=== PATIENT | female | born 1990 | race Caucasian/White ===

== ENCOUNTER → 2019-12-25 | Outpatient (CLI) | payer OTHER ==
[~2019-12-25] MED LIST: CIPR500 PO; HYDACE5 PO; IBUP600 PO; IBUP800 PO; Keflex500 MG PO; ONDA4 PO; OXYACE5T PO; PHENA200 PO; SULTRIDS PO; Ultram50 MG PO
== END | disposition home or self-care (01) ==
LOC: LAB SHORT 12:05 → LAB EV 12:05
DX: J03.90 Acute tonsillitis, unspecified (principal)
CPT/HCPCS: 87081; 87147

== ENCOUNTER 2020-08-06 11:54 | Inpatient (IN) | payer OTHER ==
[~2020-08-06] VITALS: Ht 172.7 cm; Wt 128.0 kg
[2020-08-06 13:00] LABS: BASOPHILS ABSOLUTE AUTO 0.03 K/mm3 (0.00-0.23); BASOPHILS PERCENT AUTO 0 % (0-2); EOSINOPHILS ABSOLUTE AUTO 0.17 K/mm3 (0.00-0.68); EOSINOPHILS PERCENT AUTO 2 % (0-6); Hematocrit 35.5 % (33.0-51.0); Hemoglobin 11.4 g/dL (11.5-16.0); IMMATURE GRAN ABSOLUTE AUTO 0.08 K/mm3 (0.00-0.10); IMMATURE GRAN PERCENT AUTO 1 % (0-1); LYMPHOCYTES ABSOLUTE AUTO 1.56 K/mm3 (0.84-5.20); LYMPHOCYTES PERCENT AUTO 17 % (21-46); MONOCYTES ABSOLUTE AUTO 0.34 K/mm3 (0.16-1.47); MONOCYTES PERCENT AUTO 4 % (4-13); Mean Corpuscular HGB 27.7 pg (26.0-34.0); Mean Corpuscular HGB Conc 32.1 g/dL (31.5-36.5); Mean Corpuscular Volume 86 fL (80-100); NEUTROPHILS ABSOLUTE AUTO 6.78 K/mm3 (1.96-9.15); NEUTROPHILS PERCENT AUTO 76 % (41-73); Platelet Count 318 K/mm3 (150-400); RDW Coefficient Variation 12.7 % (11.7-14.2); RDW Standard Deviation 40.2 fL (35.1-46.3); Red Blood Cell Count 4.11 M/mm3 (3.80-5.20); White Blood Cell Count 8.96 K/mm3 (4.00-11.30)
[2020-08-06] MEDS ORDERED: PRENATAL TABLE1 EAC2 PO (17:36)
--- NOTE | 2020-08-08 12:26 | NUR ---
dr gloria here to evlauate pt
[2020-08-08 14:41] LABS: PCO2 Cord - Arterial 55.3 mmHg (40-50); pH Cord - Arterial 7.23 (7.28-7.35)
[2020-08-08 14:43] LABS: PCO2 Cord - Venous 46.4 mmHg (40-50); pH Umbilical Cord - Venous 7.28 (7.26-7.35)
[2020-08-08 14:44] LABS: PO2 Cord - Arterial < 13 mmHg (16-20)
--- NOTE | 2020-08-08 14:55 | NUR ---
08/08/20 1455 [place] baby girl BORN AT 1404, CORD SEGEMNT SENT WITH RT, CORD BLOOD SENT WITH OB STAFF.
--- NOTE | 2020-08-09 01:19 | NUR ---
Pt was notifying nurse of pump beeping. Nurse was notified.
[2020-08-09 05:11] LABS: BASOPHILS ABSOLUTE AUTO 0.02 K/mm3 (0.00-0.23); BASOPHILS PERCENT AUTO 0 % (0-2); EOSINOPHILS ABSOLUTE AUTO 0.19 K/mm3 (0.00-0.68); EOSINOPHILS PERCENT AUTO 2 % (0-6); Hematocrit 28.3 % (33.0-51.0); Hemoglobin 9.3 g/dL (11.5-16.0); IMMATURE GRAN ABSOLUTE AUTO 0.07 K/mm3 (0.00-0.10); IMMATURE GRAN PERCENT AUTO 1 % (0-1); LYMPHOCYTES ABSOLUTE AUTO 2.04 K/mm3 (0.84-5.20); LYMPHOCYTES PERCENT AUTO 17 % (21-46); MONOCYTES ABSOLUTE AUTO 0.69 K/mm3 (0.16-1.47); MONOCYTES PERCENT AUTO 6 % (4-13); Mean Corpuscular HGB 28.4 pg (26.0-34.0); Mean Corpuscular HGB Conc 32.9 g/dL (31.5-36.5); Mean Corpuscular Volume 86 fL (80-100); NEUTROPHILS ABSOLUTE AUTO 8.72 K/mm3 (1.96-9.15); NEUTROPHILS PERCENT AUTO 74 % (41-73); Platelet Count 259 K/mm3 (150-400); RDW Coefficient Variation 12.9 % (11.7-14.2); RDW Standard Deviation 40.6 fL (35.1-46.3); Red Blood Cell Count 3.28 M/mm3 (3.80-5.20); White Blood Cell Count 11.73 K/mm3 (4.00-11.30)
[2020-08-10] MEDS ORDERED: Percocet 5-3251 EACH PO (02:32)
[2020-08-10] MEDS ORDERED: IBUP800 PO (02:33)
[2020-08-10] MEDS ORDERED: DOCU100 PO (02:34)
--- NOTE | 2020-08-10 10:41 | NUR ---
PT GIVEN WRITTEN AND VERBAL DC INSTRUCTIONS. QUESTIONS ANSWERED AND PT WILL FOLLOW UP WITH DR POTTS NEXT WEEK. SHE WILL ALSO RETURN SATURDAY 08/12 @ 1100 FOR PPFU HERE AT [facility] WITH JOSE ANGEL HENDERSON. SCRIPTS GIVEN. MMR GIVEN. PT VERBALIZES UNDERSTANDING.
== END 2020-08-10 12:16 | disposition home or self-care (01) | DRG 787 ==
LOC: BC 08-08 10:38
PROVIDERS: ADMIT Obstetrics & Gynecology
PROC: 10D00Z1 Extraction of Products of Conception, Low, Open Approach (ICD-10-PCS; principal; 2020-08-08 12:00)
PROC: 3E0134Z Introduction of Serum, Toxoid and Vaccine into Subcutaneous Tissue, Percutaneous Approach (ICD-10-PCS; 2020-08-10)
DX: O32.1XX0 Maternal care for breech presentation, not applicable or unspecified (principal); O99.324 Drug use complicating childbirth; Z3A.39 39 weeks gestation of pregnancy; Z37.0 Single live birth; O69.81X0 Labor and delivery complicated by cord around neck, without compression, not applicable or unspecified; O99.824 Streptococcus B carrier state complicating childbirth; F12.90 Cannabis use, unspecified, uncomplicated; O16.4 Unspecified maternal hypertension, complicating childbirth; Z23 Encounter for immunization
CPT/HCPCS: 36415; 82803; 85025; 86850; 86900; 86901; 90471; 90707; A9270; J0690; J1885; J2370; J2405; J2590; J2765; J7120